=== PATIENT | male | born 1990 | race African-American/Black ===

== ENCOUNTER 2024-05-03 08:59 | Emergency (ER) | payer SELFPAY ==
[~2024-05-03] VITALS: Ht 180.3 cm; Wt 100.0 kg
[2024-05-03 09:06] VITALS: BP 111/71; PULSE 90; RESP 18; TEMP 98.6; O2SAT 98
[2024-05-03] MEDS: HYDROCODONE/ACETAMINOPHEN 5-325 MG TABLET PO ONE (09:32)
[2024-05-03] MEDS: PERTUSS(ACELL),DIPH,TET/PF 0.5 ML SYRINGE [ADULT] IM. ONE (09:33)
[2024-05-03] MEDS ORDERED: TRAM50TA5 PO (09:36)
[2024-05-03] MEDS ORDERED: CEPH-558 PO (09:36)
== END 2024-05-03 09:43 | disposition home or self-care (01) ==
LOC: EMS 09:14
DX: T23.202A Burn of second degree of left hand, unspecified site, initial encounter (principal); T20.211A Burn of second degree of right ear [any part, except ear drum], initial encounter; X10.0XXA Contact with hot drinks, initial encounter; Y93.89 Activity, other specified; Y92.89 Other specified places as the place of occurrence of the external cause; Y99.8 Other external cause status
CPT/HCPCS: 90471; 90715; 99283

== ENCOUNTER 2024-07-03 20:21 | Emergency (ER) | payer MEDICAID ==
[~2024-07-03] VITALS: Ht 177.8 cm; Wt 90.9 kg
[~2024-07-03 20:21] MED LIST: CEPH-558 PO; TRAM50TA5 PO
[2024-07-03 22:41] VITALS: BP 137/74; PULSE 73; RESP 18; TEMP 98.3; O2SAT 98
[2024-07-03 23:15] LABS: GLUCOMETER DEV NAME(LOC) ER.7; GLUCOSE,POINT OF CARE 84 MG/DL (70-110)
[2024-07-03] MEDS ORDERED: TERB30CR8 TP (23:47)
== END 2024-07-03 23:53 | disposition home or self-care (01) ==
LOC: EMS 20:21
DX: B35.3 Tinea pedis (principal); F17.210 Nicotine dependence, cigarettes, uncomplicated; Z72.89 Other problems related to lifestyle
CPT/HCPCS: 82962; 99282